=== PATIENT | female | born 1970 | race African-American/Black ===

== ENCOUNTER → 2018-05-18 | Outpatient (CLI) | payer BC ==
[~2018-05-18] MED LIST: IOHEXOL 300MG/ML 150 ML BTL
[2018-05-18] MEDS: BARIUM SULFATE 135 ML (E-Z HD) PO (10:00)
== END | disposition home or self-care (01) ==
LOC: RAD 08:53
DX: E66.01 Morbid (severe) obesity due to excess calories (principal)
CPT/HCPCS: 74240